=== PATIENT | female | born 1990 | race Caucasian/White ===

== ENCOUNTER 2016-06-17 17:21 | Emergency (ER) | payer OTHER ==
[~2016-06-17] VITALS: Ht 167.6 cm; Wt 88.5 kg
[~2016-06-17 17:21] MED LIST: DARVOCET-N6 EACH/PAK OR; FLEXERIL10 MG PO; HYDROCODONE1 TABLET PO; IBU-8800 MG PO; LORTAB 5/3251 TAB PO; LORTAB 5/500 501 TAB PO; PHENERGAN 25MG.25 M1 PO; PROAIR HFA0.09 MG/AC IH; ZOFRAN4 MG PO
--- NOTE | 2016-06-17 18:26 | Urgent Treatment Center Report ---
See Addendum History of Present Issue Date/Time Seen by Provider 06/17/16 1805 Visit Reason Pt arrived:Walked Presenting Problem:PT FELL AND NOW HAS PAIN IN L ELBOW , + PMS NO DEFORMITES Location if Accident: Onset of symptoms date/time:06/17/1601/23/1700 or onset unknown for: Have you (or family members/close friends) recently traveled outside the [place]? N If Yes, where/when: Have you had exposure to infectious disease within the past month? TB? Other? Specify: c/o left elbow pain x 1 hour. Reports she was "twirling around like a ballerina " when she fell. Extended her left arm and tried to brace her fall. Immediate pain. Elbow "popping". Pain 7/10, throbbing. Hasn't taken or tried anything for pain "just came right in". Denies N/T. No pain in any other joints "just the elbow". Denies hitting head. No N/T. Pain in elbow worse w/ mvmt of 5th digit on left side or with any elbow ROM. ROM limited in elbow due to pain. Source patient Exam Limitations clinical condition (pain) ALLERGIES Coded Allergies: Penicillins (Intermediate, 06/17/16) Home Medications Active Scripts HYDROCODONE/ACETAMINOPHEN (Lortab 5-325 MG Tablet) 1 TAB PO QID PRN PAIN #10 TAB Prov: 01/06/14 Reported Medications Albuterol Sulfate (Proair Hfa) 1 PUFF IH Q6HP PRN ASTHMA #9 History Medical History General Angina: No SD: No Hypertension? No Hyperlipidemia? No CHF? No COPD? No Asthma? Yes CVA? No Seizures? No Diabetes? No GB Disease: No MRSA? No TB? No Cancer? 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 Cardiovascular no peripheral edema Peripheral Pulses Pulses normal Yes (radial) Extremities normal inspection, limited range of motion (left elbow, all directions), most comfortable resting at 90 degrees, moderate to severe tenderness over olecranon w/ generalized mild tenderness circumferentially, no tenderness distally or proximally, ROM (cont'd)....is able to fully extend and fully flex but both w/ pain Strength 3 Upper Ext (L), 5 Upper Ext (R) Neurologic alert Skin intact, normal color, cool to touch but consistent w/ temp outside. Pt wearing tank top in preparation to workout when this happened Medical Decision Making LABS/Meds/Orders Pt receiving controlled substance in ED? No Results/Orders Laboratory Tests 06/17/161747: Urine Test Cancelled Current Medication Orders Sig/Connor Start time Last Medication Dose Route Stop Time Status Admin Ibuprofen 800 MG ONCE ONE 06/17 1829 DC 06/17 PO 06/17 1830 183 Ibuprofen 0 .STK-MED ONE 06/17 1815 DC PO Ibuprofen 600 MG ONCE ONE 06/17 1814 CAN PO 06/17 1815 Ibuprofen 0 .STK-MED ONE 06/17 1814 DC PO Orders Procedure Date/time Status STABILIZE JOINT 06/17 190 Active ELBOW-LT-3 VIEWS 06/17 1747 Active XRAY/CT/US XRAY/CT/US XRAY elbow XR interpretation by reviewed by me (discussed w/ ER , Dr. Ayala) Xray Results no fracture seen, effusion Departure Departure Time of Disposition 1909 Disposition DC Home or Self Care(routine) Clinical Impression Primary Impression: Effusion, left elbow Secondary Impressions: Fall on same level as cause of accidental injury Condition STABLE Referrals Michel JAMES,Juan Lieberman (Family) Tomorrow for final results of xray or can FU w/ [facility] for final results. 7 days for FU exam and repeat imaging if no improvement Immediately for any new or worsening symptoms Patient Instructions DI for Elbow Pain, How to Use a Sling, Nonsteroidal Anti- inflammatory Drugs (Alternative Therapy) Additional Instructions Rest Ice x 15 minutes at least 3-4 times a day Sling until follow up with primary care anti-inflammatories as discussed. No additional anti-inflammatories. Tylenol as needed for pain in additional to anti-inflammatories See referral/follow-up. Very important that you follow-up Discharge Counseling Counseled pt/family regarding diagnosis, test results, medications/RX, home care, follow up needs Prescriptions Current Visit Scripts NAPROXEN (NAPROSYN 500MG TAB) 500 MG PO BID #14 TAB at 7511
[2016-06-17] MEDS ORDERED: NAPROSYN 500MG500 MG PO (19:15)
[2016-06-17 19:24] VITALS: BP 141/93
--- NOTE | 2016-06-17 20:28 | RADIOLOGY REPORT PS360 ---
ELBOW-LT-3 VIEWS INDICATION: Left elbow pain fall. Injury. TECHNIQUE: 3 views left elbow COMPARISON: No left elbow studies. There is a right elbow from 2014 FINDINGS: Today's studies left elbow reveal no fracture nor dislocation. The radial head appears intact. No joint effusion evident. Anterior fat pad appears normal to upper normal. Bones well mineralized. Normal relationships. IMPRESSION. Negative left elbow no fracture. No effusion
== END 2016-06-17 19:27 | disposition home or self-care (01) ==
LOC: ER 17:21 → UTC 17:35 → ER 17:35 → UTC 19:27
DX: S50.02XA Contusion of left elbow, initial encounter (principal); M25.422 Effusion, left elbow; W01.0XXA Fall on same level from slipping, tripping and stumbling without subsequent striking against object, initial encounter; Y92.009 Unspecified place in unspecified non-institutional (private) residence as the place of occurrence of the external cause

== ENCOUNTER 2017-04-16 09:51 | Emergency (ER) | payer BC ==
[~2017-04-16] VITALS: Ht 167.6 cm; Wt 90.7 kg
[~2017-04-16 09:51] MED LIST changes: +NAPROSYN 500MG500 MG PO
--- OUTSIDE RECORDS SUMMARY | 2017-04-16 10:05 | External Medical Summary Rpt | CCD ---
Author Author , CECILIO HERNANDES Address Unknown Phone Care Team Providers Care Mutual Funds Agent Name Role Phone Raymundo Jones MD, Unavailable Unavailable Raymundo Jones MD Purpose Continuity of Care Document - 06-28-2013 through 2016 Problems Code Diagnosis DOS Provider Status 493.90 493.90 [facility]9 558.9 06-28-2013 [facility] GASTROENTER [facility] IT NEC V14.0 V14.0 [facility] K52.9 NONINFECTIV E GASTROENTER ITIS AND COLITIS, UNSPECIFIED S52.123A DISP FX OF HEAD OF UNS RADIUS, INIT FOR CLOS FX Allergies, Adverse Reactions, Alerts Type Drug Allergy Adverse Reaction to Substance Substance Reaction Severity Penicillin I-RASH Intermediate Medications Na ND Rx Da Fi Fi Am Da Di Ph RX Ph St me C No te ll ll ou ys ag ar # ys at rm s nt no ma ic us Or Da si cy ia de te s n re d SO 00 02 0 No DI 40 -2 UM 97 0- Lo 98 20 ng CH 30 14 er LO 9 RI Ac DE ti ve 0. 9% SO YASEMIN TI ON Sa 63 02 0 No li 80 -2 ne 70 0- Lo 10 20 ng Fl 07 14 er us 5 h Ac 10 ti ML ve Sy ri ng e ON 00 02 0 No DA 64 -2 NS 16 0- Lo ET 08 20 ng RO 02 14 er N 5 HC Ac L ti 4 ve MG /2 ML AL NH 00 02 0 No OM 64 -2 ET 11 0- Lo TRONCOSO 49 20 ng ZI 53 14 er NE 5 Ac 25 ti ve MG /M L AM PU L Vital Signs 06-28-2013 04:57 Name Value Interpretat Reference Comment ion Range BP 76 mm[Hg] Diastolic BP Systolic 122 mm[Hg] Heart 110 /min Rate/Pulse O2% 99 % Respiratory 20 /min Rate 06-28-2013 03:47 Name Value Interpretat Reference Comment ion Range BP 70 mm[Hg] Diastolic BP Systolic 119 mm[Hg] Heart 118 /min Rate/Pulse O2% 97 % Respiratory 20 /min Rate Results Labs Lab Lab Date Result Refere Interp Status Commen Order Detail nces retati t Range on COMPREHENSIVE METABOLIC PANEL (06-28-2013 03:00) Glucose 158 74-106 complet 014 mg/dL ed Bld-mCn 03:00 c BUN 18 7-18 complet Bld-mCn 014 mg/dL ed c 03:00 Creat 1.1 0.6-1.0 complet SerPl-m 014 mg/dL ed Cnc 03:00 Creat 105 50-200 complet Cl 014 ML/MIN ed predict 03:00 ed SerPl C-G-vRa te GFR/BSA 62 59- complet .pred 014 ML/MIN ed SerPl 03:00 Schwart z-vRate Sodium 138 136-145 complet SerPl-s 014 mmoL/L ed Cnc 03:00 Potassi 3.5 3.5-5.1 complet um 014 mmoL/L ed SerPl-s 03:00 Cnc Chlorid 102 98-107 complet e 014 mmoL/L ed SerPl-s 03:00 Cnc CO2 23 21.0-32 complet SerPl-s 014 mmoL/L .0 ed Cnc 03:00 Calcium 8.8 8.5-10. complet 014 mg/dL 1 ed SerPl-m 03:00 Cnc Prot 7.7 6.4-8.2 complet SerPl-m 014 gm/dL ed Cnc 03:00 Albumin 3.8 3.4-5.0 complet 014 gm/dL ed SerPl-m 03:00 Cnc Globuli 3.9 1.3-3.2 complet n 014 gm/dL ed Ser-mCn 03:00 c Albumin 1.0 UNK 1.1-1.8 complet /Glob 014 ed SerPl-m 03:00 Rto Bilirub 06-28-2 0.7 0.2-1.0 complet 014 mg/dL ed SerPl-m 03:00 Cnc AST 06-28-2 15 U/L 15-37 complet SerPl-c 014 ed Cnc 03:00 ALT 06-28-2 20 U/L 12-78 complet SerPl-c 014 ed Cnc 03:00 ALP 06-28-2 136 U/L 50-136 complet SerPl-c 014 ed Cnc 03:00 CBC with AUTO DIFF (06-28-2013 03:00) WBC # -20-2 14.7 4.8-10. complet Bld 014 K/MM3 8 ed Auto 03:00 RBC # 20-2 5.43 4.2-5.4 complet Bld 014 M/mm3 ed Auto 03:00 Hgb 06-28-2 14.7 12.2-16 complet Bld-mCn 014 g/dL .2 ed c 03:00 Hct Fr 06-28-2 42.5 % 37.0-47 complet Bld 014 .0 ed 03:00 MCV RBC 06-28-2 78.2 fl 82.2-97 complet 014 .8 ed 03:00 MCH RBC 06-28-2 27.0 pg 27-31.2 complet Qn 014 ed Auto 03:00 MEAN 06-28-2 34.6 31.8-35 complet CORPUSC 014 g/dl .4 ed ULAR 03:00 HGB CONC RDW RBC 06-28-2 13.5 % 11.5-17 complet Auto 014 .5 ed 03:00 Platele 06-28-2 259 142-424 complet t Bld 014 K/mm3 ed Ql 03:00 Manual MEAN 06-28-2 7.1 fl 7.4-10. complet PLATELE 014 4 ed T 03:00 VOLUME Granulo 20-2 93.3 % 37.0-80 complet cytes 014 .0 ed Fr Bld 03:00 Auto LYMPH % 20-2 2.8 % 10-50.0 complet 014 ed 03:00 Monocyt 06-28-2 3.1 % 1.7-9.3 complet es Fr 014 ed Bld 03:00 Auto Eosinop 06-28-2 0.4 % 0.1-12. complet hil Fr 014 0 ed Bld 03:00 Auto Basophi 06-28- 0.2 % 0.1-2.0 complet ls Fr 014 ed Bld 03:00 Auto Granulo 13.1 1.8-7.8 complet cytes # 014 K/mm3 ed Bld 03:00 Auto Lymphoc 0.4 0.7-4.5 complet ytes Fr 014 K/mm3 ed Bld 03:00 Auto Monocyt 06-28- 0.5 0.1-1.0 complet es # 014 K/mm3 ed Bld 03:00 Auto Eosinop 0.1 0.0-0.4 complet hil # 014 K/mm3 ed Bld 03:00 Auto Basophi 0.0 0-0.2 complet ls # 014 K/MM3 ed Bld 03:00 Auto URINALYSIS/COMPLETE (06-28-2013 03:00) URINE DK YELLOW complet COLOR 014 YELLOW ed 03:00 URINE SL CLEAR complet APPEARA 014 CLOUDY ed NCE 03:00 URINE NEGATIV NEG complet GLUCOSE 014 E ed - 03:00 DIPSTIC K URINE NEGATIV NEG complet BILIRUB 014 E ed IN - 03:00 DIPSTIC K URINE TRACE NEG complet KETONE 014 mg/dL ed 03:00 URINE 1.015 1.005-1 complet SPECIFI 014 UNK .030 ed C 03:00 GRAVITY URINE TRACE-I NEG complet BLOOD 014 NTACT ed 03:00 URINE 8.5 UNK 5.0-8.5 complet PH 014 ed 03:00 URINE TRACE NEG complet PROTEIN 014 mg/dL ed - 03:00 DIPSTIC K URINE 1.0 NEG complet UROBILI 014 E.U./dL ed NOGEN - 03:00 DIPSTIC K URINE NEGATIV NEG complet NITRATE 014 E ed - 03:00 DIPSTIC K URINE NEGATIV NEG complet LEUK 014 E ed ESTERAS 03:00 E URINE -20 0 complet RBC 014 rbc/hpf ed 03:00 URINE OCC O complet WBC 014 wbc/hpf ed 03:00 URINE - 0-5 complet SQUAMOU 014 #/hpf ed S CELLS 03:00 B-HCG Ur Ql (06-28-2013 02:53) B-HCG NEGATIV NEG complet Ur Ql 014 E ed 02:53 Encounters Encounter Start End Date Code Location Performer Type Date Emergency DARLIN Jones MD (ER) 4 03:11 4 05:01 [facility]
--- OUTSIDE RECORDS SUMMARY | 2017-04-16 10:05 | External Medical Summary Rpt | CCD ---
Demographics Preferred Language Chinese Marital Status Unknown Adventist Affiliation Unknown Race Unknown Ethnic Group Unknown Author Author , CECILIO HERNANDES Address Unknown Phone Immunization No patient found.
--- OUTSIDE RECORDS SUMMARY | 2017-04-16 10:05 | External Medical Summary Rpt | CCD ---
Author Author , CECILIO HERNANDES Address Unknown Phone [email or web address] Care Team Providers Care Strategic Planning Specialist Name Role Phone Raymundo Jones MD, Unavailable Unavailable Raymundo Jones MD Purpose Continuity of Care Document - 06-28-2013 through 2016 Problems Code Diagnosis DOS Provider Status 493.90 493.90 [facility] 558.9 558.9 06-28-2013 [facility] GASTROENTER [facility] IT NEC V14.0 V14.0 06-28-2013 [facility] K52.9 NONINFECTIV E GASTROENTER ITIS AND COLITIS, [...] ti 4 ve MG /2 ML AL OR 00 02 0 No OM 64 -2 [...] Jones MD (ER) 4 03:11 4 05:01 [facility]
--- OUTSIDE RECORDS SUMMARY | 2017-04-16 10:05 | External Medical Summary Rpt | CCD ---
Demographics Preferred Language Spanish Marital Status Unknown Muslim Affiliation Unknown Race Unknown Ethnic Group Unknown Author Author , CECILIO HERNANDES Address Unknown Phone Immunization No patient found.
[2017-04-16] MEDS ORDERED: KEFLEX 500MG.500 MG PO (10:30)
[2017-04-16] MEDS ORDERED: FLONASE ALLERG9.9 ML NS (10:30)
[2017-04-16 10:31] VITALS: BP 124/78
--- NOTE | 2017-04-16 10:31 | Urgent Treatment Center Report ---
History of Present Issue Date/Time Seen by Provider 04/16/17 1025 Visit Reason Pt arrived:Walked Presenting Problem:PT C/O SINUS PRESSURE AND CONGESTION . Location if Accident: Onset of symptoms date/time:/ or onset unknown for:MEDICAL HX UNKNOWN Have you (or family members/close friends) recently traveled outside the [place]? N If Yes, where/when: Have you had exposure to infectious disease within the past month? TB? Other? Specify: Source patient, RN notes reviewed Exam Limitations no limitations Comment 27-year-old female presents for complaints of yellow/green nasal congestion and sinus pressure. Patient states she just was treated for bronchitis on the but has not completely gotten over the congestion. ALLERGIES Coded Allergies: Penicillins (Intermediate, 06/17/16) History Medical History General CAD? No Angina: No [place]: No Hypertension? No Hyperlipidemia? No CHF? No DVT? No PE? No COPD? No Asthma? Yes Anemia? No GERD? No Gastric ulcers? No GI Bleed? No Hernia? No Thyroid Problems? No Hypothyroidism? No CVA? No Seizures? No Diabetes? No Renal Insuffiency? No UTI? No Stones? No BPH? No GB Disease: No Nephritic Syndrome? No Asplenia? No Hepatitis? No Sickle Cell Disease? No Arthritis? No Migraines? No Cataracts? No Glaucoma? No MRSA? No HIV? No TB? No Anxiety? No Depression? No Cancer? No More? No Immunization HX DT/Tetanus 1-4 YRS Surgical Hx Previous Surgery?Y EAR TUBES Social History Smoking Hx Smoker: Never Smoker Tobacco: No Alcohol Alcohol: No Review of Systems All Other Systems Reviewed and Negative ENT see HPI, nose congestion. Physical Exam Vital Signs Vital Signs Date Time Temp Pulse Resp B/P Pulse O2 O2 Flow FiO2 Ox Delivery Rate 04/16 1004 97.9 88 20 124/78 99 - WBC >12,000 or <4,000 or 10% bands? 2 or more SIRS Criteria Met? B/P:124/78 MAP:93 Creatinine >2.0? UA output<0.5ml/kg/hr for 2 hrs? Platelet count >100,000? Lactate >2.0mmol/1? INR >1.2 or PTT > than 60 sec? Evidence of Organ Dysfunction? Provider documented clinical suspician of infection? Sepsis Criteria Count: 1 Sepsis Risk: General Appearance normal appearance, no apparent distress Ear, Nose, Throat sinus pain/drainage, nasal congestion, pharyngeal erythema, wax in bilateral ears Neck normal inspection, full range of motion Respiratory Status Yes: trachea midline, chest symmetrical, non tender chest. No: respiratory distress. Lung Sounds bilateral: normal breath sounds, lungs clear. Cardiovascular normal exam Neurologic alert, normal exam, oriented x 3 Medical Decision Making LABS/Meds/Orders Pt receiving controlled substance in ED? No Results/Orders Laboratory Tests 04/16/17 1010: Influenza Type A Ag NOT DETECTED, Influenza Type B Ag NOT DETECTED Orders Procedure Date/time Status [facility] FLU A,B 04/16 1010 Complete Departure Departure Time of Disposition 1027 Disposition DC Home or Self Care(routine) Clinical Impression Primary Impression: Maxillary sinusitis, acute Qualifiers: Recurrence: non-recurrent Qualified Code: J01.00 - Acute maxillary sinusitis, unspecified Secondary Impressions: Maxillary sinusitis Qualifiers: Chronicity: acute Recurrence: non-recurrent Qualified Code: J01.00 - Acute maxillary sinusitis, unspecified Condition STABLE Referrals Mcihel JAMES,Juan Lieberman (Family) Patient Instructions DI for Sinusitis, Sinusitis Additional Instructions Antibiotics as ordered Flonase as ordered The debrox [id number] for earwax Symptoms do not improve or worsen return or be seen in the ER Patient states she has taken Keflex in the past and tolerated well. Discharge Counseling Counseled pt/family regarding diagnosis, test results, medications/RX, home care, follow up needs Prescriptions Current Visit Scripts CEPHALEXIN (Keflex 500MG Capsule) 500 MG PO BID 7 Days Fluticasone Propionate (Flonase Allergy Relief) 15.8 ML NS DAILY 14 Days at 1030
== END 2017-04-16 10:31 | disposition home or self-care (01) ==
LOC: UTC 09:51
DX: J01.00 Acute maxillary sinusitis, unspecified (principal); J45.909 Unspecified asthma, uncomplicated